=== PATIENT | male | born 1950 | race Caucasian/White ===

== ENCOUNTER 2021-01-09 08:39 | Day surgery (SDC) | payer MEDICARE, OTHER, SELFPAY ==
[2021-01-09] VITALS (8 sets, daily range): BP systolic 115–166; BP diastolic 62–97; PULSE 78–85; RESP 14–16; TEMP 36.1–36.2; O2SAT 96–99; BMI 22.6
[2021-01-09] MEDS: Lactated Ringers 1,000 ML 100 ML IV (09:11)
--- NOTE | 2021-01-09 10:00 | COLBX_PTH ---
PATIENT: NORRIS WINSLOW LOC: EN U#:[id number] AGE/SX: 70/M ROOM: RE01/09/[address]: Dr. Benji Arthur MD : 1950 BED: DIS: 01/09/2021 SPEC #: [id number] RECD: 01/09/21 15:08 STATUS: DAVID AMY #: [id number] MARTIN: 01/09/21 10:[address]: Benji Arthur DEPT: SURGICAL PATHOLOGY RECD BY: Yoselin Gutierrez ENTERED: 01/10/21 08:49 SP TYPE: COLON BX OTHR DR: Dr. Navjot Degroot DO Tissues: A - Cecum, NOS B - Colon, NOS C - Colon, NOS D - Rectum, NOS Procedures: Surgery Specimen Level IV HEADER OPERATION: Colonoscopy ? open access (MAC) PRE-OP DIAGNOSIS: Colon polyps TISSUE SUBMITTED: A - Cecal polyps biopsy x3, B - Hepatic flexure polyps biopsy x2, C - Splenic flexure polyp biopsy, D - Rectal polyps and polyp biopsy MICROSCOPIC DIAGNOSIS A. Cecal polyps, biopsy: Fragments of tubular adenoma. B. Colonic polyps at hepatic flexure, biopsy: Fragments of tubular adenoma. C. Colonic polyp at splenic flexure, biopsy: Tubular adenoma. D. Rectal polyps, biopsy: Fragments of hyperplastic polyp. AM:rashmi 01/13/2021 MICROSCOPIC DESCRIPTION Slides are reviewed. GROSS DESCRIPTION A - Received in fixative is one container labeled with the patient's name and designated cecal polyp biopsy x3. The specimen consists of multiple irregular fragments of light aldrich soft tissue that in aggregate measure 1 x 1 x 0.2 cm. The specimen is totally submitted in one cassette. B - Received in fixative is one container labeled with the patient's name and designated hepatic flexure polyp biopsy. The specimen consists of multiple irregular fragments of light aldrich soft tissue that in aggregate measure 1.5 x 0.3 x 0.1 cm. The specimen is totally submitted in one cassette. C - Received in fixative is one container labeled with the patient's name and designated splenic flexure polyp biopsy. The specimen consists of two irregular fragments of light aldrich soft tissue that in aggregate measure 0.8 x 0.3 x 0.1 cm. The specimen is totally submitted in one cassette. D - Received in fixative is one container labeled with the patient's name and designated rectal polyps. The specimen consists of multiple irregular fragments of light aldrich soft tissue that in aggregate measure 2 x 1 x 0.3 cm. The specimen is totally submitted in one cassette. / Jumana 01/10/21 TC:5 CPT: 07027 x4
--- NOTE | 2021-01-09 11:23 | H&P.OPEN ---
HPI - General HPI Narrative NORRIS WINSLOW, is a 70 M who presents for surveillance endoscopy. Mr. Winslow has a history of colonic polyps and has been scoped on an interval of every 3 years. His prior scope demonstrated several adenomatous and hyperplastic polyps. He has no personal or family history of inflammatory bowel disease, diverticulitis, or colon cancer. He denies any significant concerns with his bowel movements?specifically denying any bleeding, constipation, or unexplained abdominal pains. He states that his prep for this procedure was completed without issue. [facility] Medical History (Updated 01/09/21 @ 11:[address] Benji Arthur MD) Colon polyps COPD (chronic obstructive pulmonary disease) Edentulous Former smoker History of stress test Shortness of breath on exertion Wears glasses Wears hearing aid Home Medications aspirin 81 mg PO DAILY 01/07/21 [History Last Taken Unknown] atorvastatin 10 mg PO QHS 01/07/21 [History Last Taken Unknown] cholecalciferol (vitamin D3) [Vitamin D3] 50 mcg PO DAILY 01/07/21 [History Last Taken Unknown] coenzyme Q10 [CoQ-10] 100 mg PO DAILY 01/07/21 [History Last Taken Unknown] Allergy/AdvReac Type Severity Reaction Status Date / Time No Known Allergies Allergy Verified 01/09/21 08:49 Surgical History (Updated 01/07/21 @ 15:52 by Jerri Aguirre) History of colonoscopy History of removal of cyst Social History Smoking Status: Former smoker Past Medical/Surgical History Planned Operation Planned Operative Procedure/s: colonscopy Previous Hospitalizations/Surgeries HX Hospitalizations: No Any Problems With Anesthesia: No You/Your Family Experience Fever (Hyperthermia) With Anes: No Cholinesterase deficiency: No Cardiovascular Hx Hypertension: No Respiratory Hx Sleep Apnea: No Hx Respiratory Tract Infection/Cold (presently): No Do You Snore Loudly (louder than talking or can be heard): Yes Do You Often Feel Tired/ Fatigued/ Sleepy Dring Daytime?: No Has Anyone Observed You Stop Breathing During Sleep?: No Result (for STOP score): Negative Smoking Status: Former smoker Neurological Does patient have nerve stimulator: No Miscellaneous Recent Exposure to Contagious Disease: No Allergies No Known Allergies Allergy (Verified 01/09/21 08:49) Discharge Is Pt Admitted From a Longterm, or a Skilled Nursing: No Who Could Help: After D/C, Where Do you Plan to Go: Return Home ROS Constitutional Constitutional: Denies change in weight Vital Signs Vital Signs Vital Signs: 01/09/21 09:07 Temperature 96.9 F L Temperature Source Temporal Pulse Rate 85 Respiratory Rate 16 Respiratory Pattern Normal Blood Pressure 166/97 H Blood Pressure Mean 120 Blood Pressure Source Monitor Blood Pressure Position Semi-Fowlers Blood Pressure Location Left Arm Pulse Ox 96 Oxygen Delivery Method Room Air Weight Weight: 162 lb 4.163 oz Body Mass Index (BMI) 22.6 Physical Exam Const alert, oriented x3, no apparent distress and well nourished General Appearance: cooperative and comfortable GI soft to palpation, non-tender and non-distended Inspection: Negative for scar Assessment & Plan Assessment/Plan (1) Colon polyps: QUALIFIERS: Colon polyp type: unspecified Colon location: unspecified part of colon Qualified Code(s): K63.5 - Polyp of colon PLAN: Plan to perform surveillance endoscopy today under local MAC. Patient and have no further questions given this is something Mr. Winslow is done on multiple occasions. Expectorations regarding timing of pathology reviewed with family should any polyps be found on today's procedure. Surgery Risks - Colonoscopy Risks Include but are not Limited To: Risks include but are not limited to: Bleeding, perforation requiring further surgery, inability to complete colonoscopy requiring barium enema.
--- NOTE | 2021-01-09 13:36 | EKG12_ITS ---
Test Reason : ST DEPRESSION Blood Pressure : / mmHG Vent. Rate : 079 BPM Atrial Rate : 079 BPM P-R Int : 186 ms QRS Dur : 084 ms QT Int : 410 ms P-R-T Axes : 050 051 094 degrees QTc Int : 470 ms Normal sinus rhythm Nonspecific ST and T wave abnormality Abnormal ECG Confirmed by JOVI VELÁSQUEZ, ADAN ([id number]), health editor TIMOTHY VIDES ([id number]) on 01/15/2021 11:05:13 AM Referred By: Navjot Degroot Confirmed By:ADAN ESPANA MD
--- NOTE | 2021-01-13 09:50 | OP.CCLET_ITS ---
01/13/2021 Navjot Degroot Re : Colonoscopy procedure for Chriss Barrow Dear Mikayla This procedure was performed on December. My impressions and recommendations are as follows: Impressions : - Many polyps in the rectum, in the sigmoid colon, at the splenic flexure, at the hepatic flexure and in the cecum. Biopsied. - Many, non-bleeding polyps, removed with a hot snare. Resected and retrieved. Biopsied. Recommendations : - Repeat colonoscopy in 3 years for surveillance based on pathology results. - Discharge patient to home (ambulatory). - Resume regular diet. - Continue present medications. - Await pathology results. - Repeat colonoscopy in 3 years for surveillance. My findings are described in the full procedure note, which is enclosed. If I can be of further assistance, please feel free to contact me at Doctor phone number(s): , Work: . Sincerely, Benji Arthur MD 01/09/2021 1:29:03 PM This report has been signed electronically.
--- NOTE | 2021-01-13 09:50 | OP.COLON_ITS ---
Patient Name: Chriss Barrow Procedure Date: 01/09/2021 11:21 AM Date of : 1950 Age: 70 Procedure: Colonoscopy Indications: High risk colon cancer surveillance: Personal history of colonic polyps Providers: Benji Arthur MD Referring MD: Navjot Degroot Medicines: Monitored Anesthesia Care Patient Profile: Last Colonoscopy: 3 years ago. Two tubular adenomas were found on the previous colonoscopy. The polyps were pedunculated. Complications: No immediate complications. Estimated blood loss: Minimal. Procedure: Pre-Anesthesia Assessment: - The heart rate, respiratory rate, oxygen saturations, blood pressure, adequacy of pulmonary ventilation, and response to care were monitored throughout the procedure. After I obtained informed consent, the scope was passed under direct vision. Throughout the procedure, the patient's blood pressure, pulse, and oxygen saturations were monitored continuously. The colonoscope was introduced through the anus and advanced to the cecum, identified by appendiceal orifice and ileocecal valve. The colonoscopy was technically difficult and complex due to a redundant colon. Successful completion of the procedure was aided by applying abdominal pressure. The patient tolerated the procedure well. The quality of the bowel preparation was adequate to identify polyps. Scope In: 11:40:08 AM Scope Withdrawal Time 0 hours 58 minutes 56 seconds Scope Out: 1:15:21 PM Total Procedure Duration Time 1 hour 35 minutes 13 seconds Findings: Many semi-pedunculated polyps were found in the rectum, sigmoid colon, splenic flexure, hepatic flexure and cecum. These were biopsied with a cold forceps for histology. Estimated blood loss was minimal. These polyps were removed with a hot snare. Resection and retrieval were complete. Estimated blood loss was minimal. Impression: - Many polyps in the rectum, in the sigmoid colon, at the splenic flexure, at the hepatic flexure and in the cecum. Biopsied. - Many, non-bleeding polyps, removed with a hot snare. Resected and retrieved. Biopsied. Recommendation: - Repeat colonoscopy in 3 years for surveillance based on pathology results. - Discharge patient to home (ambulatory). - Resume regular diet. - Continue present medications. - Await pathology results. - Repeat colonoscopy in 3 years for surveillance. Procedure Code(s): --- Professional --- 21162, Colonoscopy, flexible; with biopsy, single or multiple CPT copyright 2017 [employer]. All rights reserved. The codes documented in this report are preliminary and upon licensed pesticide applicator review may be revised to meet current compliance requirements. Benji Arthur MD 01/09/2021 1:29:03 PM This report has been signed electronically. Number of Addenda: 0 Note Initiated On: 01/09/2021 11:21 AM
== END 2021-01-09 14:48 ==
LOC: EN 08:40 → AC 08:41
PROVIDERS: PCP Family Medicine; Referring Provider Family Medicine; Visit Provider Surgery
PROC: 0DJD8ZZ Inspection of Lower Intestinal Tract, Via Natural or Artificial Opening Endoscopic (ICD-10-PCS; CPT 45378; principal; 2021-01-09 09:55)
DX: D12.0 Benign neoplasm of cecum (principal); D12.3 Benign neoplasm of transverse colon; K62.1 Rectal polyp; Z86.010 Personal history of colon polyps; J44.9 Chronic obstructive pulmonary disease, unspecified; Z87.891 Personal history of nicotine dependence; Z79.899 Other long term (current) drug therapy
CPT/HCPCS: 45380; 88305; 93005; J7120; J2405

== ENCOUNTER → 2022-12-16 | Outpatient (CLI) | payer MEDICARE, OTHER, SELFPAY ==
--- NOTE | 2022-12-16 09:23 | RAD_ITS ---
STUDY: X-RAY CHEST REASON FOR EXAM: Male, 72 years old. Follow-up of bilateral pneumonia. TECHNIQUE: Frontal and lateral views of the chest. COMPARISON: None. FINDINGS: Marked hyperinflation. Marked bullous changes in both upper lobes compatible with emphysema. Patchy opacities in both lower lobes, left greater than right most compatible with scarring. Flattening of the hemidiaphragms. Cardiomegaly with aortic tortuosity and calcification. Thoracic osteopenia with diffuse mild thoracic spondylosis. No abnormality of the visualized soft tissue structures of the upper abdomen. RAD/Chest PA and Lateral IMPRESSION: Changes of COPD with patchy opacities in both bases most compatible with scarring, left greater than right. Marked bolus disease with flattening of the hemidiaphragms. No acute or emergent finding. Electronically Signed: David Conrad MD at 9:40 EDT ,
== END | disposition home or self-care (01) ==
LOC: RAD 09:20
PROVIDERS: PCP Family Medicine; Referring Provider Family Medicine; Visit Provider Family Medicine
DX: Z87.01 Personal history of pneumonia (recurrent) (principal)
CPT/HCPCS: 71046

== ENCOUNTER → 2024-02-24 | Outpatient (CLI) | payer MEDICARE, OTHER, SELFPAY ==
[2024-02-24 09:54] LABS: Hematocrit 41.9 % (40-54); Hemoglobin 13.7 g/dL (13.0-16.5); Mean Corp Hgb Conc 32.7 g/dL (32-36); Mean Corpuscular Hgb 31.1 pg (27.0-32.0); Mean Corpuscular Volume 95.2 fL (80-94); Mean Platelet Vol. 9.6 fl (6.2-12.0); Platelet Count 220 K/mm3 (150-450); RBC Distribution Width CV 12.1 % (11.6-14.6); RBC Distribution Width SD 42.5 fl (35.1-43.9); White Blood Count 5.3 K/mm3 (4.4-11.0)
[2024-02-24 10:12] LABS: Anion Gap 4 (5-15); BUN 11 mg/dL (7-18); BUN/Creat Ratio 13.7 RATIO (10-20); Calcium,Total 9.8 mg/dL (8.5-10.1); Chloride 107 mmol/L (98-107); EST Glomerular Filtration Rate 100 mL/min (>60); Est Glom Filt Rate - Afr Amer 121 mL/min (>60); Glucose 107 mg/dL (74-106); PSA,Total - Annual Screen 3.22 ng/mL (0.00-4.00); Potassium 3.8 mmol/L (3.5-5.1); Sodium Level 139 mmol/L (136-145)
== END | disposition home or self-care (01) ==
LOC: PAVLAB 09:39
PROVIDERS: PCP Family Medicine; Referring Provider Urology; Visit Provider Urology
DX: Z01.812 Encounter for preprocedural laboratory examination (principal); Z12.5 Encounter for screening for malignant neoplasm of prostate
CPT/HCPCS: 36415; 80048; 84153; 85027; G0103

== ENCOUNTER → 2024-02-24 | Outpatient (CLI) | payer MEDICARE, OTHER, SELFPAY ==
--- NOTE | 2024-02-24 09:27 | EKG12_ITS ---
Test Reason : PRE OP Blood Pressure : / mmHG Vent. Rate : 066 BPM Atrial Rate : 066 BPM P-R Int : 144 ms QRS Dur : 084 ms QT Int : 390 ms P-R-T Axes : 035 073 068 degrees QTc Int : 408 ms Normal sinus rhythm Nonspecific ST abnormality Abnormal ECG Confirmed by Benji Barnes ([id number]), research editor TIMOTHY VIDES ([id number]) on 02/25/2024 6:02:16 AM Referred By: Klever Patiño Confirmed By:Benji Barnes
== END | disposition home or self-care (01) ==
LOC: PSN 09:27
PROVIDERS: PCP Family Medicine; Referring Provider Urology; Visit Provider Urology
DX: Z01.812 Encounter for preprocedural laboratory examination (principal); Z01.810 Encounter for preprocedural cardiovascular examination; Z12.5 Encounter for screening for malignant neoplasm of prostate
CPT/HCPCS: 36415; 80048; 84153; 85027; 93005; G0103

== ENCOUNTER 2024-06-08 06:19 | Day surgery (SDC) | payer MEDICARE, OTHER, SELFPAY ==
--- NOTE | 2024-06-07 13:53 | PAT.ANE_ITS ---
Pre-Assessment Diagnosis/Proposed Procedure Planned Operative Procedure(s): CSCOPE Anesthesia History Anesthesia History - senior grants officer: Anesthesia History - senior grants officer Hx Hospitalization No 06/07/24 12:41 Any Problems With Anesthesia No 06/07/24 12:41 Cholinesterase deficiency No 06/07/24 12:41 You/Your Family Experience No 06/07/24 12:41 fever (hyperthermia) with Relationship Recent Exposure to Contagious No 04/18/24 09:37 Disease Does patient have nerve No 06/07/24 12:41 stimulator Patient instructed to have device shut off --Does patient have Pacemaker or ICD? When Was Last Pacemaker Check QUESTION #4 FULL TEXT: You/Your Family Experience fever (hyperthermia) with Anesthesia Last Oral Intake Last Oral intake: Last Oral Intake NPO since Meds taken in AM with sips of water? Meds patient instructed to take am of surgery PONV PONV - senior grants officer: PONV - senior grants officer Female No 06/07/24 12:41 HX of Motion Sickness No 06/07/24 12:41 HX of N/V After Surgery No 06/07/24 12:41 Non-Smoker Yes 06/07/24 12:41 Duration of Surgery greater No 06/07/24 12:41 than 60 minutes Number of Risk Factors 1 06/07/24 12:41 PONV Score Low Risk 06/07/24 12:41 Height & Weight Height & Weight: Anesthesia: Height & Weight Height 5 ft 11 in 05/02/24 13:30 Respiratory Assessment Respiratory Assessment - senior grants officer: Respiratory Tract Infection Hx - senior grants officer Hx Respiratory Tract Infection No 06/07/24 12:41 STOP Sleep Apnea STOP Sleep Apnea - senior grants officer: STOP Sleep Apnea - senior grants officer Hx Hypertension Yes: CONTROLLED WITH MED 06/07/24 12:41 Hx Sleep Apnea No 06/07/24 12:41 CPAP BIPAP Do you snore loudly (louder No 06/07/24 12:41 than talking or can be heard Do you often feel tired/ No 06/07/24 12:41 fatigued/ sleepy during daytime? Has anyone observed you stop No 06/07/24 12:41 breathing during sleep? STOP Results Negative 06/07/24 12:41 QUESTION #5 FULL TEXT : Do you snore loudly (louder than talking or can be heard through closed doors)? Tobacco Use History Tobacco Use History - senior grants officer: Tobacco Use History - senior grants officer Tobacco Use Smoking Status Former smoker 06/07/24 12:41 Hx Tobacco Use No 06/07/24 12:41 Years Smoking Packs Smoked per Day Smoking Cessation Date was No - quit smoking greater 06/07/24 12:41 within the last 15 years than 15 years ago Hx Smoking Cessation Date 01/07/01 06/07/24 12:41 Hx Smoking Cessation Counseling Hematologic Medial History Hematologic Hx - senior grants officer: Hematologic Medical Hx - documentation liaison Hx of Blood Transfusion No 06/07/24 12:41 Hx of Transfusion in last 3 No 06/07/24 12:41 Months Date of Last Transfusion (if within last 3 months) Ever experience any problems No 06/07/24 12:41 with transfusion(s)? Specify any problems Hx of Preganancy in last 3 N/A 06/07/24 12:41 Months Nurse Filling Out Transfusion NBUCHER 06/07/24 12:41 & Questions: Date: 06/07/24 06/07/24 12:41 Time: 12:42 06/07/24 12:41 Patient unable to answer at this time (ie. confused, unrespo /Reproduction History /Reproductive History - senior grants officer: /Reproductive Hx- senior grants officer Hx Now No 06/07/24 12:41 Gestational Age (in weeks): EDC: Hx Hx Para Hx Section SAB No 06/07/24 12:41 [facility] Medical History (Updated 06/07/24 @ 12:46 by Karoline Palomo) Loss of hearing BPH (benign prostatic hyperplasia) Prostate disease High cholesterol Colon polyps Edentulous Wears glasses Wears hearing aid Former smoker COPD (chronic obstructive pulmonary disease) Shortness of breath on exertion History of stress test Home Medications ?Medication ?Instructions ?Recorded ?Last Taken ?Type cholecalciferol (vitamin D3) 50 50 mcg PO DAILY 01/07/21 Unknown History mcg (2,000 unit) tablet (Vitamin D3) coenzyme Q10 100 mg capsule 100 mg PO DAILY cholesterol 01/07/21 Unknown History (CoQ-10) atorvastatin 20 mg tablet 20 mg PO QDAY 05/02/24 Unknown History multivit,calc,mins-folic 240 1 tab PO QDAY 05/02/24 Unknown History mcg-vit K1 30 mcg-lycopene 300 mcg tablet (One-A-Day Men's Complete) tamsulosin 0.4 mg capsule (Flomax) 0.4 mg PO QDAY 05/02/24 Unknown History lisinopril 20 mg tablet 20 mg PO DAILY 06/07/24 Unknown History Allergy/AdvReac Type Severity Reaction Status Date / Time No Known Allergies Allergy Verified 06/07/24 12:40 Surgical History (Updated 06/07/24 @ 12:46 by Karoline Palomo) History of circumcision History of removal of cyst History of colonoscopy Social History Smoking Status: Former smoker Audit: Pertinent Findings Pertinent Findings EKG Perinent findings: 02/24/2024 normal sinus rhythm [address] abnormality Stress test pertinent findings: 11/12/2020 7 METS negative Recommendation Anesthesia Recommendation Anesthesia recommendation: OPTIMIZED for anesthesia
[2024-06-08] VITALS (8 sets, daily range): BP systolic 109–137; BP diastolic 66–73; PULSE 69–79; RESP 16–18; TEMP 36.2–37.1; O2SAT 93–99; BMI 22.1
--- NOTE | 2024-06-08 06:46 | PCM.PRE.AN2 ---
ASA Classification* ASA Classification ASA Classification: 2 Assessment & Plan Anesthesia* Anesthesia Assessment Anesthesia Assessment: Discussed sedation and/or anesthesia options, risks, benefits, and alternatives with patient/parents/legal guardian/POA. Questions invited. The patient/parents/legal guardian/POA seems to understand and agrees to proceed with anesthesia plan. Reviewed the physical assessment, medical history, allergy history and patient home medications list prior to surgery/procedure/anesthetic and documented any changes. Performed airway and anesthesia risk assessments. Anesthesia Type Anesthesia Type: MAC Anesthesia Focused Assessment* Temperature: 98.8 F Pulse Rate: 79 Blood Pressure: 137/66 Respiratory Rate: 16 Pulse Ox: 99 Airway Assessment Mouth opens: >3 cm Mallampati Score: II Focused Labs Anesthesia Preop lab: CBC WBC 5.3 K/mm3 (4.4-11.0) 02/24/24 08:41 RBC 4.40 M/mm3 (4.6-6.2) L 02/24/24 08:41 Hgb 13.7 g/dL (13.0-16.5) 02/24/24 08:41 Hct 41.9 % (40-54) 02/24/24 08:41 Plt Count 220 K/mm3 (150-450) 02/24/24 08:41 CHEMISTRY Potassium 3.8 mmol/L (3.5-5.1) 02/24/24 08:41 Sodium 139 mmol/L (136-145) 02/24/24 08:41 BUN 11 mg/dL (7-18) 02/24/24 08:41 Creatinine 0.80 mg/dL (0.70-1.30) 02/24/24 08:41 Glucose 107 mg/dL (74-106) H 02/24/24 08:41 COAG Pre-Assessment Diagnosis/Proposed Procedure Planned Operative Procedure(s): CSCOPE Anesthesia History Anesthesia History - insulation worker apprentice: Anesthesia History - insulation worker apprentice Hx Hospitalization No 06/07/24 12:41 Any Problems With Anesthesia No 06/07/24 12:41 Cholinesterase deficiency No 06/07/24 12:41 You/Your Family Experience No 06/07/24 12:41 fever (hyperthermia) with Relationship Recent Exposure to Contagious No 06/08/24 06:37 Disease Does patient have nerve No 06/07/24 12:41 stimulator Patient instructed to have device shut off --Does patient have Pacemaker No 06/08/24 06:37 or ICD? When Was Last Pacemaker Check QUESTION #4 FULL TEXT: You/Your Family Experience fever (hyperthermia) with Anesthesia Last Oral Intake Last Oral intake: Last Oral Intake NPO since 03:30 06/08/24 06:37 Meds taken in AM with sips of No 06/08/24 06:37 water? Meds patient instructed to take am of surgery PONV PONV - insulation worker apprentice: PONV - insulation worker apprentice Female No 06/07/24 12:41 HX of Motion Sickness No 06/07/24 12:41 HX of N/V After Surgery No 06/07/24 12:41 Non-Smoker Yes 06/07/24 12:41 Duration of Surgery greater No 06/07/24 12:41 than 60 minutes Number of Risk Factors 1 06/07/24 12:41 PONV Score Low Risk 06/07/24 12:41 Height & Weight Height & Weight: Anesthesia: Height & Weight Height 5 ft 11 in 06/08/24 06:37 Weight: 72 kg 06/08/24 06:37 Body Mass Index (BMI) 22.1 06/08/24 06:37 Respiratory Assessment Respiratory Assessment - insulation worker apprentice: Respiratory Tract Infection Hx - insulation worker apprentice Hx Respiratory Tract Infection No 06/07/24 12:41 STOP Sleep Apnea STOP Sleep Apnea - insulation worker apprentice: STOP Sleep Apnea - insulation worker apprentice Hx Hypertension Yes: CONTROLLED WITH MED 06/07/24 12:41 Hx Sleep Apnea No 06/07/24 12:41 CPAP BIPAP Do you snore loudly (louder No 06/07/24 12:41 than talking or can be heard Do you often feel tired/ No 06/07/24 12:41 fatigued/ sleepy during daytime? Has anyone observed you stop No 06/07/24 12:41 breathing during sleep? STOP Results Negative 06/07/24 12:41 QUESTION #5 FULL TEXT : Do you snore loudly (louder than talking or can be heard through closed doors)? Tobacco Use History Tobacco Use History - insulation worker apprentice: Tobacco Use History - insulation worker apprentice Tobacco Use Smoking Status Former smoker 06/07/24 12:41 Hx Tobacco Use No 06/07/24 12:41 Years Smoking Packs Smoked per Day Smoking Cessation Date was No - quit smoking greater 06/07/24 12:41 within the last 15 years than 15 years ago Hx Smoking Cessation Date 01/07/01 06/07/24 12:41 Hx Smoking Cessation Counseling Hematologic Medial History Hematologic Hx - insulation worker apprentice: Hematologic Medical Hx - documentation analyst Hx of Blood Transfusion No 06/07/24 12:41 Hx of Transfusion in last 3 No 06/07/24 12:41 Months Date of Last Transfusion (if within last 3 months) Ever experience any problems No 06/07/24 12:41 with transfusion(s)? Specify any problems Hx of Preganancy in last 3 N/A 06/07/24 12:41 Months Nurse Filling Out Transfusion NBUCHER 06/07/24 12:41 & Questions: Date: 06/07/24 06/07/24 12:41 Time: 12:42 06/07/24 12:41 Patient unable to answer at this time (ie. confused, unrespo /Reproduction History /Reproductive History - insulation worker apprentice: /Reproductive Hx- insulation worker apprentice Hx Now No 06/07/24 12:41 Gestational Age (in weeks): EDC: Hx Hx Para Hx Section SAB No 06/07/24 12:41 PFS Medical History Loss of hearing BPH (benign prostatic hyperplasia) Prostate disease High cholesterol Colon polyps Edentulous Wears glasses Wears hearing aid Former smoker COPD (chronic obstructive pulmonary disease) Shortness of breath on exertion History of stress test Home Medications ?Medication ?Instructions ?Recorded ?Last Taken ?Type cholecalciferol (vitamin D3) 50 50 mcg PO DAILY 01/07/21 06/07/24 History mcg (2,000 unit) tablet (Vitamin D3) coenzyme Q10 100 mg capsule 100 mg PO DAILY cholesterol 01/07/21 06/07/24 History (CoQ-10) atorvastatin 20 mg tablet 20 mg PO QDAY 05/02/24 06/07/24 History multivit,calc,mins-folic 240 1 tab PO QDAY 05/02/24 06/07/24 History mcg-vit K1 30 mcg-lycopene 300 mcg tablet (One-A-Day Men's Complete) tamsulosin 0.4 mg capsule (Flomax) 0.4 mg PO QDAY 05/02/24 06/07/24 History lisinopril 20 mg tablet 20 mg PO DAILY 06/07/24 06/07/24 History Allergy/AdvReac Type Severity Reaction Status Date / Time No Known Allergies Allergy Verified 06/08/24 06:37 Surgical History History of circumcision History of removal of cyst History of colonoscopy Social History Smoking Status: Former smoker Review of Systems (Anesthesia) ROS Narrative System reviewed and no additional complaints, except as documented.
--- NOTE | 2024-06-08 07:25 | HP.PCM_ITS ---
History and Physical Date of Admission: 06/08/24 Date of Service: 05/02/24 MR#: [id number] Acct: [id number] Name: NORRIS WINSLOW Rep #: [id number] : 1950 Provider: Dr. Benji Arthur MD Age/Sex: 73/M Location: [facility] Status: Signed Intake Vital Signs 01/09/2109:07 04/18/2409:37 05/02/2413:30 Height 5 ft 11 in 5 ft 11 in 5 ft 11 in Weight: 165 lb 8 oz BMI 23.1 BP 139/89 H Blood Pressure Location Rt brachial Position Sitting Respiration 17 Pulse 97 Pulse Source Monitor Pulse Oximetry (%) 96 Oxygen Delivery Method room air Intake Visit Reasons: COLONOSCOPY RECALL LETTER Chief Complaint: colonoscopy recall letter Is patient in pain?: No Allergies No Known Allergies Allergy (Verified 05/02/24 13:31) Medications ?Medication ?Instructions ?Recorded ?Confirmed ?Type cholecalciferol (vitamin D3) 50 50 mcg PO DAILY 01/07/21 05/02/24 History mcg (2,000 unit) tablet (Vitamin D3) coenzyme Q10 100 mg capsule 100 mg PO DAILY cholesterol 01/07/21 05/02/24 History (CoQ-10) atorvastatin 20 mg tablet 20 mg PO QDAY 05/02/24 05/02/24 History multivit,calc,mins-folic 240 1 tab PO QDAY 05/02/24 05/02/24 History mcg-vit K1 30 mcg-lycopene 300 mcg tablet (One-A-Day Men's Complete) tamsulosin 0.4 mg capsule (Flomax) 0.4 mg PO QDAY 05/02/24 05/02/24 History Have you fallen in the past year?: No PFSH Medical History Colon polyps Edentulous Wears glasses Wears hearing aid Former smoker COPD (chronic obstructive pulmonary disease) Shortness of breath on exertion History of stress test Surgical History History of removal of cyst History of colonoscopy Social History Smoking Status: Former smoker HPI HPI HPI: Patient is a 73-year-old male who presents for need to schedule surveillance c olonoscopy secondary to history of polyps. He presents for colonoscopy recall after a prior colonoscopy with me on 01/13/2021. During that exam I encountered many polyps spread throughout the rectum, sigmoid colon, both colonic flexures, and the cecum. Final pathology on these polyps was a mixture of tubular adenomas and hyperplastic polyps. Mr. Winslow denies any significant health updates apart from a circumcision completed a couple of months ago. He shares that he is still healing from this procedure but denies any ongoing infections. They describe their bowel habits as normal/regular. They have approximately 1 bowel movements per day and spend roughly minutes on the toilet without significant straining. They have not noticed recent bleeding or dark stools. Patient has no family history of colon cancer, inflammatory bowel disease, diverticulitis. The patient's weight is stable. The patient is not prescribed anticoagulants/blood thinners. Mr. Winslow also confirms that his COPD has been stable and that he has been characterized as having just a little bit (of the disease). ROS General General: No weight change, appetite, fatigue, colon cancer, breast cancer or weakness HEENT HEENT: No difficulty swallowing, eye injury, eye surgery, swollen glands or hoarseness Endo Endocrine: No thyroid disease, diabetes mellitus, thyroid cancer, Hair loss, heat intolerance or cold intolerance Skin Skin: No rash or changing moles Musc Musculoskeletal: No back problems, arthritis, rheumatoid arthritis, gout or joint pain Cardio Cardiovascular: Yes high blood pressure; No murmur, pacemaker, heart disease, atrial fibrillation, heart attack, heart stent, palpitations, shortness of breat with exertion or chest pain Psych Psychiatric: No depression, anxiety or hearing voices Resp Respiratory: No shortness of breath, No sleep apnea, No cough, Yes COPD, No asthma, No emphysema and No wheezing Gastro Gastrointestinal: No abdominal pain, No nausea or vomiting, No diarrhea, No constipation, No blood in stool, No acid reflux, No hemorrhoids, No ulcers, No gallbladder problem and No black,tarry stools Jin Hematologic: No blood thinners, No blood disorders, No bleeding, No anemia and No blood clots Neuro Neurologic: No system reviewed and no additional complaints, except as doc umented, No as per HPI, No abnormal gait, No abnormal hearing, No abnormal movements, No abnormal speech, No behavioral changes, No burning sensations, No confusion, No convulsions, No disequilibrium, No dizziness, No localized weakness, No frequent falls, No headache(s), No lack of coordination, No loss of vision, No memory loss, No numbness, No other visual disturbances, No radicular pain, No restless legs, No sensory deficit, No syncope, No tingling, No tremor(s), No weakness and No other Exam Const General: cooperative, comfortable, no acute distress and well developed Resp Effort & Inspection: normal respiratory effort GI Inspection: normal to inspection and no scars Palpation: soft and nontender Assessment and Plan Assessment and Plan (1) Colon polyps: Status: Chronic Qualifiers: Colon polyp type: unspecified Colon location: unspecified part of colon Qualified Code(s): K63.5 - Polyp of colon Comment: Patient is a 73-year-old male with a well-established history of colonic polyps who presents for update surveillance colonoscopy. He denies any interval issues with his bowels and, generally?speaking, denies any significant health updates otherwise. I do ask him specifically about the healing from his circumcision and he confirms that his pretty well-healed and there is no residual concern for infection. Thus, at this time I recommend we proceed with booking him for surveillance colonoscopy at his first convenience. Plan: Plan will be to complete colonoscopy on first mutually agreeable date under local MAC. Pre-procedure prep discussed and paper instructions provided. Patient is also made aware that he will need to have a local company tanker driver with him the day of the procedure. I have examined the patient and the H&P has been reviewed. There are no clinical changes since date of exam. Patient confirms he completed his prep in anticipation of today's procedure and denies any health history updates. We will thus plan to proceed to the endoscopy suite for scheduled surveillance colonoscopy.
--- NOTE | 2024-06-08 07:30 | COLBX_PTH ---
PATIENT: NORRIS WINSLOW LOC: EN U#:[id number] AGE/SX: 73/M ROOM: RE06/08/[address]: Dr. Benji Arthur MD : 1950 BED: DIS: 06/08/2024 SPEC #: [id number] RECD: 06/08/24 10:36 STATUS: DAVID AMY #: [id number] MARTIN: 06/08/24 07:[address]: Benji Arthur DEPT: SURGICAL PATHOLOGY RECD BY: Yoselin Gutierrez ENTERED: 06/08/24 11:15 SP TYPE: COLON BX OTHR DR: Dr. Navjot Degroot DO Tissues: A - Descending colon B - Ascending colon C - Cecum, NOS D - Ascending colon E - Descending colon F - Sigmoid colon biopsy G - Rectum, NOS Procedures: Surgery Specimen Level IV HEADER OPERATION: Colonoscopy, biopsy, polypectomy PRE-OP DIAGNOSIS: Colon polyps TISSUE SUBMITTED: A- Proximal descending polyp biopsy, B- Ascending colon polyp #1, C- Cecal polyp biopsy, D- Ascending polyp #2, E- Descending polyps x2, F- Sigmoid polyps x2, G- Rectal polyps x3 biopsy MICROSCOPIC DIAGNOSIS A. Proximal descending colon polyp, biopsy: Hyperplastic polyp. B. Ascending colon polyp #1, polypectomy: Fragments of tubular adenoma. C. Cecal polyp, biopsy: Fragments of tubular adenoma. D. Ascending colon polyp #2, polypectomy: Tubular adenoma. E. Descending colon polyp x2, polypectomy: Fragments of tubular adenoma. F. Sigmoid polyps x2, polypectomy: Tubular adenoma. Hyperplastic polyp. G. Rectal polyps x3, biopsy: Fragments of hyperplastic polyp. 06/09/2024 MICROSCOPIC DESCRIPTION Slides are reviewed. GROSS DESCRIPTION A. Received in fixative is one container labeled with the patient's name and designated Proximal descending polyp biopsy. The specimen consists of one irregular fragment of light aldrich soft tissue that measures 0.5 x 0.3 x 0.1 cm. The specimen is totally submitted in one cassette. B. Received in fixative is one container labeled with the patient's name and designated Ascending colon polyp #1. The specimen consists of multiple irregular fragments of light aldrich soft tissue that in aggregate measure 1.6 x 0.3 x 0.1 cm. The specimen is totally submitted in one cassette. C. Received in fixative is one container labeled with the patient's name and designated Cecal polyp biopsy. The specimen consists of two irregular fragments of light aldrich soft tissue that in aggregate measure 0.7 x 0.5 x 0.1 cm. The specimen is totally submitted in one cassette. D. Received in fixative is one container labeled with the patient's name and designated Ascending polyp #2. The specimen consists of one irregular fragment of light aldrich soft tissue that measures 0.6 x 0.5 x 0.2 cm. The specimen is totally submitted in one cassette. E. Received in fixative is one container labeled with the patient's name and designated Descending polyps x2. The specimen consists of multiple irregular fragments of light aldrich soft tissue that in aggregate measure 1.6 x 0.3 x 0.1 cm. The specimen is totally submitted in one cassette. F. Received in fixative is one container labeled with the patient's name and designated Sigmoid polyps x2. The specimen consists of two irregular fragments of light aldrich soft tissue that in aggregate measure 0.8 x 0.2 x 0.1 cm. The specimen is totally submitted in one cassette. G. Received in fixative is one container labeled with the patient's name and designated Rectal polyp x3 biopsy. The specimen consists of multiple irregular fragments of light aldrich soft tissue that in aggregate measure 0.9 x 0.5 x 0.2 cm. The specimen is totally submitted in one cassette. 06/08/2024 TC:1 CPT:[id number]
--- NOTE | 2024-06-08 08:51 | PCM.POST.ANE ---
Anesthesia: Postop Eval I Current Vital Signs Temperature: 97.1 F Pulse Rate: 74 Blood Pressure: 111/73 Respiratory Rate: 16 Pulse Ox: 95 Oxygen Delivery Method: Room Air Assessment Airway patent: Yes Spontaneous unlabored respirations: Yes Mental status: Asleep nausea: No Vomiting: No Anesthesia Complication: No Fluid Hydration Crystalloid volume administer (ml): 105 Total IV fluid infused: 105 Progress Note Anesthesia document: Postop Eval 1 completed: Yes
--- NOTE | 2024-06-08 08:52 | OP.COLON_ITS ---
Patient Name: Chriss Barrow Procedure Date: 06/08/2024 7:32 AM Date of : 1950 Age: 73 Procedure: Colonoscopy Indications: High risk colon cancer surveillance: Personal history of non-advanced adenoma Providers: Benji Arthur MD Referring MD: Navjot Degroot Medicines: See the Anesthesia note for documentation of the administered medications Patient Profile: Last Colonoscopy: more than 3 years ago. Complications: No immediate complications. Estimated blood loss: Minimal. Procedure: Pre-Anesthesia Assessment: - The heart rate, respiratory rate, oxygen saturations, blood pressure, adequacy of pulmonary ventilation, and response to care were monitored throughout the procedure. After I obtained informed consent, the scope was passed under direct vision. Throughout the procedure, the patient's blood pressure, pulse, and oxygen saturations were monitored continuously. The Colonoscope was introduced through the anus and advanced to the cecum, identified by the appendiceal orifice, ileocecal valve and palpation. The colonoscopy was somewhat difficult due to a tortuous colon. Successful completion of the procedure was aided by using scope torsion. The patient tolerated the procedure well. The quality of the bowel preparation was adequate to identify polyps. Scope In: 7:44:24 AM Scope Withdrawal Time 0 hours 25 minutes 45 seconds Scope Out: 8:37:19 AM Total Procedure Duration Time 0 hours 52 minutes 55 seconds Findings: Skin tags were found on perianal exam. A 5 mm polyp was found in the proximal descending colon. The polyp was semi-sessile. Biopsies were taken with a cold forceps for histology. Estimated blood loss was minimal. A 10 mm, non-bleeding polyp was found in the distal ascending colon. The polyp was semi-pedunculated. The polyp was removed with a hot snare. Resection and retrieval were complete. Estimated blood loss: none. A 5 mm, non-bleeding polyp was found in the cecum. The polyp was semi-sessile. Biopsies were taken with a cold forceps for histology. Estimated blood loss was minimal. A 12 mm, non-bleeding polyp was found in the distal ascending colon. The polyp was semi-pedunculated. The polyp was removed with a hot snare. Resection and retrieval were complete. Estimated blood loss: none. Two semi-pedunculated, non-bleeding polyps were found in the descending colon. The polyps were 5 to 8 mm in size. These polyps were removed with a hot snare. Resection and retrieval were complete. Estimated blood loss was minimal. Two semi-sessile, non-bleeding polyps were found in the sigmoid colon. The polyps were 5 to 7 mm in size. Biopsies were taken with a cold forceps for histology. Estimated blood loss was minimal. Three sessile, non-bleeding polyps were found in the rectum. The polyps were 3 to 7 mm in size. Biopsies were taken with a cold forceps for histology. Estimated blood loss was minimal. Internal hemorrhoids were found during retroflexion. The hemorrhoids were mild and Grade I (internal hemorrhoids that do not prolapse). No biopsies or other specimens were collected for this exam. Multiple small-mouthed diverticula were found in the sigmoid colon. No biopsies or other specimens were collected for this exam. Impression: - Perianal skin tags found on perianal exam. - One 5 mm polyp in the proximal descending colon. Biopsied. - One 10 mm, non-bleeding polyp in the distal ascending colon, removed with a hot snare. Resected and retrieved. - One 5 mm, non-bleeding polyp in the cecum. Biopsied. - One 12 mm, non-bleeding polyp in the distal ascending colon, removed with a hot snare. Resected and retrieved. - Two 5 to 8 mm, non-bleeding polyps in the descending colon, removed with a hot snare. Resected and retrieved. - Two 5 to 7 mm, non-bleeding polyps in the sigmoid colon. Biopsied. - Three 3 to 7 mm, non-bleeding polyps in the rectum. Biopsied. - Internal hemorrhoids. No specimens collected. - Diverticulosis in the sigmoid colon. No specimens collected. Recommendation: - Discharge patient to home (via wheelchair). - Resume previous diet today. - No aspirin, ibuprofen, naproxen, or other non-steroidal anti-inflammatory drugs for 2 days after biopsy. - Await pathology results. - Repeat colonoscopy date to be determined after pending pathology results are reviewed for surveillance based on pathology results. - Telephone my office for pathology results in 1 week. Procedure Code(s): --- Professional --- 05204, Colonoscopy, flexible; with removal of tumor(s), polyp(s), or other lesion(s) by snare technique 39864, 59, Colonoscopy, flexible; with biopsy, single or multiple Diagnosis Code(s): --- Professional --- Z86.010, Personal history of colonic polyps D12.4, Benign neoplasm of descending colon D12.0, Benign neoplasm of cecum D12.2, Benign neoplasm of ascending colon D12.5, Benign neoplasm of sigmoid colon D12.8, Benign neoplasm of rectum K64.0, First degree hemorrhoids K64.4, Residual hemorrhoidal skin tags K57.30, Diverticulosis of large intestine without perforation or abscess without bleeding CPT copyright 2021 [employer]. All rights reserved. The codes documented in this report are preliminary and upon fermenting cellars supervisor review may be revised to meet current compliance requirements. Benji Arthur MD 06/08/2024 8:51:46 AM This report has been signed electronically. Number of Addenda: 0 Note Initiated On: 06/08/2024 7:32 AM
--- NOTE | 2024-06-08 08:52 | OP.CCLET_ITS ---
06/08/2024 Navjot Degroot Re : Colonoscopy procedure for Chriss Barrow Dear Mikayla This procedure was performed on May. My impressions and recommendations are as follows: Impressions : - Perianal skin tags found on perianal exam. - One 5 mm polyp in the proximal descending colon. Biopsied. - One 10 mm, non-bleeding polyp in the distal ascending colon, removed with a hot snare. Resected and retrieved. - One 5 mm, non-bleeding polyp in the cecum. Biopsied. - One 12 mm, non-bleeding polyp in the distal ascending colon, removed with a hot snare. Resected and retrieved. - Two 5 to 8 mm, non-bleeding polyps in the descending colon, removed with a hot snare. Resected and retrieved. - Two 5 to 7 mm, non-bleeding polyps in the sigmoid colon. Biopsied. - Three 3 to 7 mm, non-bleeding polyps in the rectum. Biopsied. - Internal hemorrhoids. No specimens collected. - Diverticulosis in the sigmoid colon. No specimens collected. Recommendations : - Discharge patient to home (via wheelchair). - Resume previous diet today. - No aspirin, ibuprofen, naproxen, or other non-steroidal anti-inflammatory drugs for 2 days after biopsy. - Await pathology results. - Repeat colonoscopy date to be determined after pending pathology results are reviewed for surveillance based on pathology results. - Telephone my office for pathology results in 1 week. My findings are described in the full procedure note, which is enclosed. If I can be of further assistance, please feel free to contact me at Doctor phone number(s): , Work: . Sincerely, Benji Arthur MD 06/08/2024 8:51:46 AM This report has been signed electronically.
--- NOTE | 2024-06-08 09:32 | PCM.POSTANE2 ---
Anesthesia Postop Eval I Sum Postop Eval Completion status Anesthesia document: Postop Eval 1 completed: Yes Anesthesia Postop Eval I Summary Anesthesia Postop Eval I Summary: Anesthesia Postop Eval I: Assessment Summary Airway patent Yes 06/08/24 08:51 [email or web address] Spontaneous unlabored Yes 06/08/24 08:51 [email or web address] respirations Mental status Asleep 06/08/24 08:51 [email or web address] nausea No 06/08/24 08:51 [email or web address] Vomiting No 06/08/24 08:51 [email or web address] Anesthesia Postop Eval I: Fluid Summary Crystalloid volume administer 105 06/08/24 08:51 [email or web address] (ml) Colloids volume administered ( ml) Blood Product volume administered (ml) Total IV fluid infused 105 06/08/24 08:51 [email or web address] Anesthesia Postop Eval I: Summary Notes Anesthesia Complication No 06/08/24 08:51 [email or web address] Anesthesia Complication Comment: Post-operative progress note Anesthesia: Postop Eval II Evaluation Mental status: Awake Pain Level: 0 nausea: No Vomiting: No
== END 2024-06-08 09:42 | disposition home or self-care (01) ==
LOC: EN 06:19 → AC 06:20
PROVIDERS: PCP Family Medicine; Referring Provider Family Medicine; Visit Provider Surgery
PROC: 0DJD8ZZ Inspection of Lower Intestinal Tract, Via Natural or Artificial Opening Endoscopic (ICD-10-PCS; CPT 45378; principal; 2024-06-08 07:25)
DX: Z12.11 Encounter for screening for malignant neoplasm of colon (principal); J44.9 Chronic obstructive pulmonary disease, unspecified; D12.0 Benign neoplasm of cecum; D12.2 Benign neoplasm of ascending colon; K64.4 Residual hemorrhoidal skin tags; D12.5 Benign neoplasm of sigmoid colon; K57.30 Diverticulosis of large intestine without perforation or abscess without bleeding; Z87.891 Personal history of nicotine dependence; Z86.0100 Personal history of colon polyps, unspecified; K64.0 First degree hemorrhoids; D12.4 Benign neoplasm of descending colon; I10 Essential (primary) hypertension; K62.1 Rectal polyp; Z79.899 Other long term (current) drug therapy; E78.00 Pure hypercholesterolemia, unspecified
CPT/HCPCS: 45385; 45380; 88305; A4216; J2405

== ENCOUNTER → 2025-03-26 | Outpatient (CLI) | payer MEDICARE, OTHER, SELFPAY ==
[2025-03-26 10:34] LABS: PSA,Total- Diagnostic 3.30 ng/mL (0.00-4.00)
== END | disposition home or self-care (01) ==
LOC: LAB 09:25
PROVIDERS: PCP Family Medicine; Referring Provider Urology; Visit Provider Urology
DX: R97.20 Elevated prostate specific antigen [PSA] (principal)
CPT/HCPCS: 36415; 84153